=== PATIENT | female | born 1970 | race Caucasian/White ===

== ENCOUNTER → 2025-05-09 | Outpatient (REF) | LOC: M SLEEP HO 11:00 | PROVIDERS: ATTEND Student in an Organized Health Care Education/Training Program | DX: G47.33 Obstructive sleep apnea (adult) (pediatric) (principal) ==

== ENCOUNTER → 2025-06-13 | Outpatient (REF) | LOC: M CFLAB 12:51 | DX: Z01.89 Encounter for other specified special examinations (principal) ==